=== PATIENT | female | born 1965 | race Two or more races ===

== ENCOUNTER 2020-10-03 16:19 | Inpatient (IN) | payer OTHER ==
[~2020-10-03] VITALS: Ht 160 cm; Wt 68.0 kg
[2020-10-03] MEDS ORDERED: METHYLPREDNISOLONE SOD SUCC 125 MG/2 ML VIAL IV ONE (17:15)
[2020-10-03] MEDS ORDERED: VANCOMYCIN 1 G PREMIX 200 ML IV ONE (17:15)
[2020-10-03] MEDS ORDERED: LEVOFLOXACIN 750MG PREMIX 150 ML IV ONE (17:15)
[2020-10-03 18:10] LABS: BASOPHILS % 0.4 % (0.0-2.0); HEMATOCRIT. 42.6 % (36.0-48.0); HEMOGLOBIN. 14.4 g/dL (12.0-16.0); LYMPHOCYTES % 12.9 % (20.0-50.0); MEAN CORPUSCULAR HEMOGLOBIN 28.9 pg (28.0-32.0); MEAN CORPUSCULAR VOLUME 85.6 fL (81.0-99.0); MEAN PLATELET VOLUME 11.7 fl (7.4-10.4); NEUTROPHILS % 79.7 % (40.0-76.0); PLATELET 123 x1000/uL (130-400); RED BLOOD CELL COUNT 4.98 mill/uL (4.2-5.4); RED CELL DISTRIBUTION WIDTH 13.2 % (11.6-14.6)
[2020-10-03 18:16] LABS: CHLORIDE 107 mEq/L (98-107)
[2020-10-03] MEDS ORDERED: MORPHINE SULFATE 2 MG/ML CPJ (NOT FOR IM USE) IV ONE (19:00)
[2020-10-03 20:05] LABS: CHLORIDE 106 mEq/L (98-107)
[2020-10-03] MEDS ORDERED: ACETAMINOPHEN 325MG TABLET PO ONE (20:30)
[2020-10-03] MEDS ORDERED: MAGNESIUM/ALUMINUM HYDROXIDE/SIMETHICONE 30ML UDC PO PRN (20:45)
[2020-10-03] MEDS ORDERED: ZOLPIDEM TARTRATE 5MG TABLET PO PRN (20:45)
[2020-10-03] MEDS ORDERED: DOCUSATE SODIUM 100MG CAPSULE PO PRN (20:45)
[2020-10-03] MEDS ORDERED: CLONIDINE 0.1MG TABLET PO PRN (20:45)
[2020-10-03] MEDS ORDERED: NITROGLYCERIN 0.4MG TABLET SL SL PRN (20:45)
[2020-10-03] MEDS ORDERED: ONDANSETRON HCL 4MG/2ML INJ IV PRN (20:45)
[2020-10-03] MEDS ORDERED: ALBUTEROL 6.7GM HFA INHALER ORI PRN (20:45)
[2020-10-03] MEDS: FAMOTIDINE 20MG TABLET PO SCH ×2 (21:00→21:36)
[2020-10-03] MEDS: ALBUTEROL 6.7GM HFA INHALER ORI SCH (21:00)
[2020-10-03] MEDS: ASCORBIC ACID 500 MG TABLET PO SCH ×2 (21:00→21:36)
[2020-10-03] MEDS: GUAIFENESIN/DM 600MG/30MG ER TAB 12HR PO SCH ×2 (21:00→21:36)
[2020-10-03 21:27] LABS: T4 FREE 1.09 ng/dL (0.76-1.46)
[2020-10-03] MEDS: ENOXAPARIN 40MG/0.4ML SYR SUBCUT SCH (21:37)
[2020-10-03] MEDS ORDERED: AZITHROMYCIN 500 MG in DEXT 5% WATER 250 ML IV SCH (22:00)
[2020-10-03 22:13] LABS: *AMPHETAMINES SCREEN URINE NEGATIVE (NEGATIVE); *BARBITURATES SCREEN URINE NEGATIVE (NEGATIVE); *BENZODIAZEPINES SCREEN URINE NEGATIVE (NEGATIVE); *COCAINE SCREEN URINE NEGATIVE (NEGATIVE); METHADONE URINE SCREEN NEGATIVE (NEGATIVE); OPIATES URINE SCREEN NEGATIVE (NEGATIVE); PHENCYCLIDINE URINE SCREEN NEGATIVE (NEGATIVE)
[2020-10-03 22:14] LABS: CANNABINOID URINE SCREEN NEGATIVE (NEGATIVE)
[2020-10-03 23:14] LABS: CREATINE KINASE 62 IU/L (26-192)
[2020-10-03 23:15] LABS: CREATINE KINASE MB FRACTION < 1.0 ng/mL (0.5-3.6)
[2020-10-04] MEDS: ALBUTEROL 6.7GM HFA INHALER ORI SCH ×4 (03:00→21:00)
[2020-10-04 05:49] LABS: BASOPHILS % 0.3 % (0.0-2.0); HEMATOCRIT. 42.8 % (36.0-48.0); HEMOGLOBIN. 13.9 g/dL (12.0-16.0); LYMPHOCYTES % 20.2 % (20.0-50.0); MEAN CORPUSCULAR HEMOGLOBIN 28.7 pg (28.0-32.0); MEAN CORPUSCULAR VOLUME 88.2 fL (81.0-99.0); MEAN PLATELET VOLUME 11.5 fl (7.4-10.4); MONOCYTES % 3.7 % (2.0-8.0); NEUTROPHILS % 75.8 % (40.0-76.0); PLATELET 122 x1000/uL (130-400); RED BLOOD CELL COUNT 4.85 mill/uL (4.2-5.4); RED CELL DISTRIBUTION WIDTH 13.7 % (11.6-14.6)
[2020-10-04 05:50] LABS: CHLORIDE 106 mEq/L (98-107)
[2020-10-04 06:04] LABS: CREATINE KINASE 68 IU/L (26-192)
[2020-10-04 06:11] LABS: CREATINE KINASE MB FRACTION < 1.0 ng/mL (0.5-3.6)
[2020-10-04] MEDS ORDERED: CEFTRIAXONE 1 G PREMIX 50 ML IV SCH (09:00)
[2020-10-04 10:00] VITALS: BP 145/81
[2020-10-04] MEDS: FAMOTIDINE 20MG TABLET PO SCH ×2 (10:55→22:10)
[2020-10-04] MEDS: ASPIRIN 81MG EC TABLET PO SCH (10:55)
[2020-10-04] MEDS: CEFTRIAXONE 1,000 MG in DEXTROSE 5% WATER 50 ML IV SCH (10:55)
[2020-10-04] MEDS: GUAIFENESIN/DM 600MG/30MG ER TAB 12HR PO SCH ×2 (10:56→22:10)
[2020-10-04] MEDS: ZINC SULFATE 220 MG ( 50 ) CAPSULE PO SCH (10:56)
[2020-10-04] MEDS: ASCORBIC ACID 500 MG TABLET PO SCH ×2 (10:56→22:10)
[2020-10-04] MEDS: CHOLECALCIFEROL (D3) 1000 UNIT TABLET PO SCH (10:56)
[2020-10-04] MEDS: GUAIFENESIN 200MG/10ML SUGAR FREE UDC PO PRN ×2 (10:59→18:41)
[2020-10-04] MEDS: KETOROLAC 15MG/ML VIAL IV PRN ×2 (11:01→18:41)
[2020-10-04 12:00] VITALS: BP 114/74
[2020-10-04 16:00] VITALS: BP 115/66
[2020-10-04 20:00] VITALS: BP 131/71
[2020-10-04] MEDS: ENOXAPARIN 40MG/0.4ML SYR SUBCUT SCH (22:10)
[2020-10-04] MEDS: AZITHROMYCIN 500 MG in DEXT 5% WATER 250 ML IV SCH (22:10)
[2020-10-05] VITALS: BP 109/66
[2020-10-05] MEDS: KETOROLAC 15MG/ML VIAL IV PRN ×3 (00:54→21:42)
[2020-10-05 04:00] VITALS: BP 99/62
[2020-10-05] MEDS: ALBUTEROL 6.7GM HFA INHALER ORI SCH ×4 (05:09→21:32)
[2020-10-05 08:00] VITALS: BP 108/64
[2020-10-05] MEDS: CEFTRIAXONE 1,000 MG in DEXTROSE 5% WATER 50 ML IV SCH (08:17)
[2020-10-05] MEDS: ZINC SULFATE 220 MG ( 50 ) CAPSULE PO SCH (08:17)
[2020-10-05] MEDS: FAMOTIDINE 20MG TABLET PO SCH ×3 (08:18→21:32)
[2020-10-05] MEDS: GUAIFENESIN/DM 600MG/30MG ER TAB 12HR PO SCH ×3 (08:18→21:32)
[2020-10-05] MEDS: ASPIRIN 81MG EC TABLET PO SCH (08:18)
[2020-10-05] MEDS: CHOLECALCIFEROL (D3) 1000 UNIT TABLET PO SCH (08:18)
[2020-10-05] MEDS: ASCORBIC ACID 500 MG TABLET PO SCH ×3 (08:18→21:32)
[2020-10-05 12:00] VITALS: BP 128/65
[2020-10-05] MEDS: ACETAMINOPHEN 325MG TABLET PO PRN (15:26)
[2020-10-05 16:00] VITALS: BP 105/60
[2020-10-05] MEDS: GUAIFENESIN 200MG/10ML SUGAR FREE UDC PO PRN (19:41)
[2020-10-05 20:00] VITALS: BP 104/66
[2020-10-05] MEDS: AZITHROMYCIN 500 MG in DEXT 5% WATER 250 ML IV SCH (21:32)
[2020-10-05] MEDS: ENOXAPARIN 40MG/0.4ML SYR SUBCUT SCH (21:33)
[2020-10-06] VITALS: BP 110/64
[2020-10-06 04:00] VITALS: BP 113/63
[2020-10-06] MEDS: ALBUTEROL 6.7GM HFA INHALER ORI SCH ×4 (04:34→21:57)
[2020-10-06] MEDS: GUAIFENESIN 200MG/10ML SUGAR FREE UDC PO PRN ×2 (04:40→16:33)
[2020-10-06] MEDS: KETOROLAC 15MG/ML VIAL IV PRN ×2 (04:40→22:19)
[2020-10-06 08:00] VITALS: BP 109/52
[2020-10-06] MEDS: CEFTRIAXONE 1,000 MG in DEXTROSE 5% WATER 50 ML IV SCH (10:02)
[2020-10-06] MEDS: CHOLECALCIFEROL (D3) 1000 UNIT TABLET PO SCH (10:03)
[2020-10-06] MEDS: ZINC SULFATE 220 MG ( 50 ) CAPSULE PO SCH (10:03)
[2020-10-06] MEDS: ASPIRIN 81MG EC TABLET PO SCH (10:03)
[2020-10-06] MEDS: ASCORBIC ACID 500 MG TABLET PO SCH ×2 (10:03→21:56)
[2020-10-06] MEDS: GUAIFENESIN/DM 600MG/30MG ER TAB 12HR PO SCH ×2 (10:04→21:56)
[2020-10-06] MEDS: FAMOTIDINE 20MG TABLET PO SCH ×2 (10:04→21:56)
[2020-10-06] MEDS: ACETAMINOPHEN 325MG TABLET PO PRN ×2 (10:17→16:33)
[2020-10-06 12:00] VITALS: BP 108/51
[2020-10-06 16:00] VITALS: BP 118/67
[2020-10-06 20:00] VITALS: BP 106/62
[2020-10-06] MEDS: AZITHROMYCIN 500 MG in DEXT 5% WATER 250 ML IV SCH (21:56)
[2020-10-06] MEDS: ENOXAPARIN 40MG/0.4ML SYR SUBCUT SCH (21:56)
[2020-10-07] VITALS: BP 116/64
[2020-10-07] MEDS: ALBUTEROL 6.7GM HFA INHALER ORI SCH ×4 (03:10→20:37)
[2020-10-07 04:00] VITALS: BP 129/81
[2020-10-07 08:00] VITALS: BP 130/73
[2020-10-07] MEDS: CEFTRIAXONE 1,000 MG in DEXTROSE 5% WATER 50 ML IV SCH (08:47)
[2020-10-07] MEDS: ASPIRIN 81MG EC TABLET PO SCH (09:00)
[2020-10-07] MEDS: CHOLECALCIFEROL (D3) 1000 UNIT TABLET PO SCH (09:00)
[2020-10-07] MEDS: FAMOTIDINE 20MG TABLET PO SCH ×2 (09:00→20:36)
[2020-10-07] MEDS: ASCORBIC ACID 500 MG TABLET PO SCH ×2 (09:00→20:36)
[2020-10-07] MEDS: GUAIFENESIN/DM 600MG/30MG ER TAB 12HR PO SCH ×2 (09:00→20:36)
[2020-10-07] MEDS: ZINC SULFATE 220 MG ( 50 ) CAPSULE PO SCH (09:00)
[2020-10-07 12:00] VITALS: BP 155/80
[2020-10-07 16:00] VITALS: BP 114/73
[2020-10-07 20:00] VITALS: BP 130/69
[2020-10-07] MEDS: AZITHROMYCIN 500 MG in DEXT 5% WATER 250 ML IV SCH (20:35)
[2020-10-07] MEDS: ENOXAPARIN 40MG/0.4ML SYR SUBCUT SCH (20:35)
[2020-10-07] MEDS: KETOROLAC 15MG/ML VIAL IV PRN (20:36)
[2020-10-08] VITALS: BP 132/85
[2020-10-08] MEDS: ALBUTEROL 6.7GM HFA INHALER ORI SCH ×4 (02:13→20:48)
[2020-10-08 04:00] VITALS: BP 126/61
[2020-10-08 08:00] VITALS: BP_SYST 140; BP_SYST 46; BP_DIAS 78; BP_DIAS 84
[2020-10-08] MEDS: GUAIFENESIN/DM 600MG/30MG ER TAB 12HR PO SCH ×2 (09:00→20:47)
[2020-10-08] MEDS: CHOLECALCIFEROL (D3) 1000 UNIT TABLET PO SCH (09:00)
[2020-10-08] MEDS: ZINC SULFATE 220 MG ( 50 ) CAPSULE PO SCH (09:00)
[2020-10-08] MEDS: ASPIRIN 81MG EC TABLET PO SCH (09:00)
[2020-10-08] MEDS: ASCORBIC ACID 500 MG TABLET PO SCH ×2 (09:00→20:47)
[2020-10-08] MEDS: FAMOTIDINE 20MG TABLET PO SCH ×2 (09:00→20:47)
[2020-10-08] MEDS: CEFTRIAXONE 1,000 MG in DEXTROSE 5% WATER 50 ML IV SCH (09:55)
[2020-10-08 12:00] VITALS: BP 146/84
[2020-10-08] MEDS: AZITHROMYCIN 500 MG in DEXT 5% WATER 250 ML IV SCH (14:28)
[2020-10-08 16:00] VITALS: BP 116/87
[2020-10-08] MEDS: ACETAMINOPHEN 325MG TABLET PO PRN (17:23)
[2020-10-08] MEDS: GUAIFENESIN 200MG/10ML SUGAR FREE UDC PO PRN (17:23)
[2020-10-08 20:00] VITALS: BP 128/68
[2020-10-08] MEDS: ENOXAPARIN 40MG/0.4ML SYR SUBCUT SCH (20:47)
[2020-10-09] VITALS: BP 120/60
[2020-10-09] MEDS: ALBUTEROL 6.7GM HFA INHALER ORI SCH ×4 (03:12→20:29)
[2020-10-09 04:00] VITALS: BP 137/70
[2020-10-09] MEDS: ASCORBIC ACID 500 MG TABLET PO SCH ×2 (09:18→20:27)
[2020-10-09] MEDS: GUAIFENESIN/DM 600MG/30MG ER TAB 12HR PO SCH ×2 (09:18→20:27)
[2020-10-09] MEDS: CEFTRIAXONE 1,000 MG in DEXTROSE 5% WATER 50 ML IV SCH (09:18)
[2020-10-09] MEDS: FAMOTIDINE 20MG TABLET PO SCH ×2 (09:19→20:27)
[2020-10-09] MEDS: ZINC SULFATE 220 MG ( 50 ) CAPSULE PO SCH (09:19)
[2020-10-09] MEDS: ASPIRIN 81MG EC TABLET PO SCH (09:19)
[2020-10-09] MEDS: CHOLECALCIFEROL (D3) 1000 UNIT TABLET PO SCH (11:05)
[2020-10-09 12:00] VITALS: BP 123/83
[2020-10-09] MEDS: AZITHROMYCIN 500 MG in DEXT 5% WATER 250 ML IV SCH (13:04)
[2020-10-09 16:00] VITALS: BP 130/79
[2020-10-09 20:00] VITALS: BP 132/73
[2020-10-09] MEDS: ENOXAPARIN 40MG/0.4ML SYR SUBCUT SCH (20:27)
[2020-10-09] MEDS: ACETAMINOPHEN 325MG TABLET PO PRN (23:53)
[2020-10-10] VITALS: BP 137/79
[2020-10-10] MEDS: ALBUTEROL 6.7GM HFA INHALER ORI SCH ×4 (03:00→21:54)
[2020-10-10 04:00] VITALS: BP 111/73
[2020-10-10 08:00] VITALS: BP 118/75
[2020-10-10] MEDS: ASPIRIN 81MG EC TABLET PO SCH (08:33)
[2020-10-10] MEDS: GUAIFENESIN/DM 600MG/30MG ER TAB 12HR PO SCH ×2 (08:33→21:53)
[2020-10-10] MEDS: ASCORBIC ACID 500 MG TABLET PO SCH ×2 (08:33→21:53)
[2020-10-10] MEDS: FAMOTIDINE 20MG TABLET PO SCH ×2 (08:33→21:53)
[2020-10-10] MEDS: ZINC SULFATE 220 MG ( 50 ) CAPSULE PO SCH (08:33)
[2020-10-10] MEDS: CHOLECALCIFEROL (D3) 1000 UNIT TABLET PO SCH (08:34)
[2020-10-10 12:00] VITALS: BP 113/73
[2020-10-10] MEDS: AZITHROMYCIN 500 MG in DEXT 5% WATER 250 ML IV SCH (12:43)
[2020-10-10 16:00] VITALS: BP 121/73
[2020-10-10 20:00] VITALS: BP 138/88
[2020-10-10] MEDS: ENOXAPARIN 40MG/0.4ML SYR SUBCUT SCH (21:53)
[2020-10-11] VITALS: BP 118/76
[2020-10-11] MEDS: ACETAMINOPHEN 325MG TABLET PO PRN (00:26)
[2020-10-11] MEDS: ALBUTEROL 6.7GM HFA INHALER ORI SCH ×4 (03:00→21:30)
[2020-10-11 04:00] VITALS: BP 117/62
[2020-10-11 08:00] VITALS: BP 123/71
[2020-10-11] MEDS: ASCORBIC ACID 500 MG TABLET PO SCH ×2 (08:50→21:29)
[2020-10-11] MEDS: ASPIRIN 81MG EC TABLET PO SCH (08:50)
[2020-10-11] MEDS: CHOLECALCIFEROL (D3) 1000 UNIT TABLET PO SCH (08:50)
[2020-10-11] MEDS: ZINC SULFATE 220 MG ( 50 ) CAPSULE PO SCH (08:50)
[2020-10-11] MEDS: FAMOTIDINE 20MG TABLET PO SCH ×2 (08:50→21:29)
[2020-10-11] MEDS: GUAIFENESIN/DM 600MG/30MG ER TAB 12HR PO SCH ×2 (08:50→21:29)
[2020-10-11 12:00] VITALS: BP 111/73
[2020-10-11] MEDS: AZITHROMYCIN 500 MG in DEXT 5% WATER 250 ML IV SCH (14:32)
[2020-10-11 16:00] VITALS: BP 120/74
[2020-10-11 20:00] VITALS: BP 117/68
[2020-10-11] MEDS: ENOXAPARIN 40MG/0.4ML SYR SUBCUT SCH (21:29)
[2020-10-12] VITALS: BP 106/61
[2020-10-12 04:00] VITALS: BP 108/59
[2020-10-12] MEDS: ALBUTEROL 6.7GM HFA INHALER ORI SCH ×3 (04:00→15:00)
[2020-10-12 08:00] VITALS: BP 113/63
[2020-10-12] MEDS: ZINC SULFATE 220 MG ( 50 ) CAPSULE PO SCH (08:23)
[2020-10-12] MEDS: ASCORBIC ACID 500 MG TABLET PO SCH (08:23)
[2020-10-12] MEDS: FAMOTIDINE 20MG TABLET PO SCH (08:23)
[2020-10-12] MEDS: ASPIRIN 81MG EC TABLET PO SCH (08:23)
[2020-10-12] MEDS: CHOLECALCIFEROL (D3) 1000 UNIT TABLET PO SCH (08:23)
[2020-10-12] MEDS: GUAIFENESIN/DM 600MG/30MG ER TAB 12HR PO SCH (08:23)
[2020-10-12 12:00] VITALS: BP 118/74
[2020-10-12] MEDS: AZITHROMYCIN 500 MG in DEXT 5% WATER 250 ML IV SCH (13:42)
[2020-10-12 15:26] VITALS: BP 103/63
[2020-10-12] MEDS: GUAIFENESIN 200MG/10ML SUGAR FREE UDC PO PRN (16:05)
== END 2020-10-12 16:08 | disposition short-term general hospital (02) | DRG 871 ==
LOC: ER 16:19 → MICUSO 18:47 → 7WST 10-04 07:21
PROVIDERS: ADMIT Internal Medicine; ATTEND Internal Medicine
DX: A41.9 Sepsis, unspecified organism (principal); U07.1 COVID-19; J12.82 Pneumonia due to coronavirus disease 2019; J96.01 Acute respiratory failure with hypoxia; E44.1 Mild protein-calorie malnutrition; I10 Essential (primary) hypertension; E78.00 Pure hypercholesterolemia, unspecified; E87.5 Hyperkalemia; Z78.9 Other specified health status; Z68.26 Body mass index [BMI] 26.0-26.9, adult
CPT/HCPCS: 36415; 71045; 80048; 80053; 80061; 80305; 82550; 82553; 83036; 83735; 83880; 84439; 84443; 84484; 85025; 87426; 93005; 93970; 99285; C1893; J0456; J0696; J1650; J1885; J1956; J2405; J2930; J3370; J7040; J7060; U0003; U0005

== ENCOUNTER 2023-02-02 12:12 | Inpatient (IN) | payer OTHER ==
[~2023-02-02] VITALS: Ht 152.4 cm; Wt 90.3 kg
[2023-02-02] MEDS ORDERED: ACETAMINOPHEN 325MG TABLET PO ONE (13:15)
[2023-02-02] MEDS ORDERED: METOCLOPRAMIDE HCL 10MG/2ML VIAL IV ONE (13:15)
[2023-02-02] MEDS ORDERED: SODIUM CHLORIDE 0.9% 1,000 ML IV ONE (13:15)
[2023-02-02 13:51] LABS: PROTHROMBIN TIME 10.3 sec (9.6-11.0)
[2023-02-02 15:42] LABS: BASOPHILS % 0.7 % (0.0-2.0); DIFFERENTIAL COMMENT 0; EOSINOPHILS % 1.7 % (0.0-5.0); HEMATOCRIT. 39.9 % (36.0-48.0); HEMOGLOBIN. 13.1 g/dL (12.0-16.0); LYMPHOCYTES % 41.6 % (20.0-50.0); MEAN CORPUSCULAR HEMOGLOBIN 28.4 pg (28.0-32.0); MEAN CORPUSCULAR HGB CONC 32.8 g/dL (31.0-37.0); MEAN CORPUSCULAR VOLUME 86.7 fL (81.0-99.0); MEAN PLATELET VOLUME 11.8 fl (7.4-10.4); MONOCYTES % 6.3 % (2.0-8.0); NEUTROPHILS % 49.7 % (40.0-76.0); PLATELET 197 x1000/uL (130-400); RED CELL DISTRIBUTION WIDTH 13.8 % (11.6-14.6); WHITE BLOOD COUNT 5.6 x1000/uL (4.5-11.0)
[2023-02-02 16:23] LABS: CLARITY URINE CLEAR (CLEAR); COLOR URINE YELLOW (YELLOW); GLUCOSE URINE NEGATIVE (NEGATIVE); KETONES URINE NEGATIVE (NEGATIVE); LEUKOCYTE ESTERASE URINE NEGATIVE (NEGATIVE); NITRITE URINE NEGATIVE (NEGATIVE); OCCULT BLOOD URINE NEGATIVE (NEGATIVE); PH URINE 6.5 (4.5-8.0); PROTEIN URINE NEGATIVE (NEGATIVE); UROBILINOGEN URINE 0.2 E.U./dL (0.2-1.0)
[2023-02-02 16:57] LABS: *AMPHETAMINES SCREEN URINE NEGATIVE (NEGATIVE); *BARBITURATES SCREEN URINE NEGATIVE (NEGATIVE); *BENZODIAZEPINES SCREEN URINE NEGATIVE (NEGATIVE); *COCAINE SCREEN URINE NEGATIVE (NEGATIVE); CANNABINOID URINE SCREEN NEGATIVE (NEGATIVE); ECSTASY MDMA SCREEN URINE NEGATIVE (NEGATIVE); METHADONE URINE SCREEN Neg (NEGATIVE); OPIATES URINE SCREEN NEGATIVE (NEGATIVE); PHENCYCLIDINE URINE SCREEN NEGATIVE (NEGATIVE)
[2023-02-02 17:26] LABS: TROPONIN I HIGH SENSITIVITY < 4 ng/L (3.0-34)
[2023-02-02 17:50] LABS: ALANINE AMINOTRANSFERASE 12 IU/L (10-49); ASPARTATE AMINOTRANSFERASE 18 IU/L (<34); BILIRUBIN TOTAL 0.5 mg/dL (0.1-1.0); CALCIUM 9.4 mg/dL (8.7-10.4); CARBON DIOXIDE 25 mEq/L (21-32); CHLORIDE 107 mEq/L (98-107); CREATININE 0.7 mg/dL (0.6-1.0); GLUCOSE 69 mg/dL (70-105); POTASSIUM 4.1 mEq/L (3.5-5.1); PROTEIN TOTAL 7.1 g/dL (6.0-8.3); SODIUM 144 mEq/L (136-145); UREA NITROGEN BLOOD 9 mg/dL (9-23)
[2023-02-02 17:52] LABS: ETHANOL BLOOD < 10 mg/dL (<10)
[2023-02-03 04:00] VITALS: BP 132/56; PULSE 60; RESP 19; TEMP 97.5
[2023-02-03 08:00] VITALS: BP 134/68; PULSE 57; RESP 18; TEMP 97.9
[2023-02-03] MEDS ORDERED: HYDROCODONE/ACETAMINOPHEN 7.5/325MG TABLET PO PRN (08:30)
[2023-02-03] MEDS: ASPIRIN 81MG TABLET PO SCH (08:37)
[2023-02-03] MEDS ORDERED: NALOXONE HCL 0.4MG/ML VIAL IV PRN (08:45)
[2023-02-03 12:00] VITALS: BP 119/59; PULSE 54; RESP 18; TEMP 96
[2023-02-03] MEDS ORDERED: IOHEXOL-350 100 ML BOTTLE ONE (12:18)
[2023-02-03 12:55] LABS: CALCIUM 9.8 mg/dL (8.7-10.4); CARBON DIOXIDE 32 mEq/L (21-32); CHLORIDE 100 mEq/L (98-107); CHOLESTEROL 118 mg/dL (<200); CREATININE 0.6 mg/dL (0.6-1.0); GLUCOSE 103 mg/dL (70-105); HDL CHOLESTEROL 27 mg/dL (>65); LDL CHOLESTEROL 82 mg/dL (5-100); SODIUM 137 mEq/L (136-145); THYROID STIMULATING HORMONE 1.12 uIU/mL (0.55-4.78); TRIGLYCERIDE 79 mg/dL (0-150); UREA NITROGEN BLOOD 10 mg/dL (9-23)
[2023-02-03] MEDS: AMLODIPINE 5MG TABLET PO SCH (15:00)
[2023-02-03] MEDS ORDERED: KETOROLAC 15MG/ML VIAL IV PRN (15:00)
[2023-02-03] MEDS ORDERED: DIPHENHYDRAMINE 50MG/ML VIAL IV PRN (15:00)
[2023-02-03 16:00] VITALS: BP 99/61; PULSE 55; RESP 18; TEMP 97.1
[2023-02-03 20:00] VITALS: BP 121/70; PULSE 60; RESP 20; TEMP 97.6
[2023-02-03] MEDS ORDERED: ATORVASTATIN CALCIUM 40MG TABLET PO SCH (21:00)
[2023-02-04] VITALS: BP 97/61; PULSE 52; RESP 19; TEMP 97.2
[2023-02-04 04:00] VITALS: BP 125/54; PULSE 52; RESP 20; TEMP 97
[2023-02-04 08:00] VITALS: BP 117/63; PULSE 67; RESP 18; TEMP 99
[2023-02-04] MEDS: AMLODIPINE 5MG TABLET PO SCH (08:13)
[2023-02-04] MEDS: ASPIRIN 81MG TABLET PO SCH (08:13)
[2023-02-04] MEDS ORDERED: GADOTERATE MEGLUMINE 5 MMOL/10 ML VIAL IV ONE (11:23)
[2023-02-04 12:00] VITALS: BP 129/62; PULSE 60; RESP 18; TEMP 98.1
[2023-02-04 13:43] VITALS: BP 129/62; PULSE 60; TEMP 98.1; O2SAT 96
== END 2023-02-04 14:20 | disposition home or self-care (01) | DRG 305 ==
LOC: ER 12:16 → EDBEDREQTM 22:03 → EDBEDREQSVC 22:03 → EDBEDREQ 22:03 → MICUSO 02-03 00:52 → 7WST 02-03 04:01
PROVIDERS: ADMIT Internal Medicine; ATTEND Internal Medicine
DX: I16.0 Hypertensive urgency (principal); I10 Essential (primary) hypertension; E78.00 Pure hypercholesterolemia, unspecified; H53.8 Other visual disturbances; Z85.038 Personal history of other malignant neoplasm of large intestine
CPT/HCPCS: 36415; 70496; 70551; 70552; 71045; 72156; 80048; 80053; 80061; 80305; 80320; 81003; 83735; 84443; 84484; 85025; 86850; 86900; 93005; 93970; 99291; A9577; J1200; J1885; J2765; J7030; Q9967; G0480

== ENCOUNTER 2024-09-17 09:27 | Emergency (ER) | payer OTHER ==
[~2024-09-17] VITALS: Ht 165.1 cm; Wt 62.0 kg
[2024-09-17 09:29] VITALS: O2SAT 99
[2024-09-17] MEDS: MORPHINE SULFATE 4 MG/ML INJ (FOR IV/IM USE) IV ONE ×2 (10:38→11:45)
[2024-09-17 10:55] LABS: BASOPHILS % 0.1 % (0.0-2.0); EOSINOPHILS % 0.0 % (0.0-5.0); HEMATOCRIT. 41.5 % (36.0-48.0); HEMOGLOBIN. 13.7 g/dL (12.0-16.0); LYMPHOCYTES % 7.2 % (20.0-50.0); MEAN PLATELET VOLUME 11.4 fl (7.4-10.4); MONOCYTES % 6.7 % (2.0-8.0); NEUTROPHILS % 86.0 % (40.0-76.0); PLATELET 216 x1000/uL (130-400); RED BLOOD CELL COUNT 4.82 mill/uL (4.2-5.4); RED CELL DISTRIBUTION WIDTH 14.0 % (11.6-14.6)
[2024-09-17 11:04] LABS: CREATININE 1.0 mg/dL (0.6-1.0); UREA NITROGEN BLOOD 12 mg/dL (9-23)
[2024-09-17 11:05] LABS: TROPONIN I HIGH SENSITIVITY 11 ng/L (3.0-34)
[2024-09-17] MEDS: ONDANSETRON HCL 4MG/2ML INJ IV ONE (11:45)
[2024-09-17] MEDS: SODIUM CHLORIDE 0.9% 1,000 ML IV ONE (11:45)
[2024-09-17] MEDS ORDERED: DEXT 5%/0.45% NACL 1000ML 1,000 ML IV SCH (12:45)
[2024-09-17] MEDS ORDERED: HYDROCODONE/ACETAMINOPHEN 5/325MG TABLET PO PRN (12:45)
[2024-09-17] MEDS ORDERED: ACETAMINOPHEN 325MG TABLET PO PRN (12:45)
[2024-09-17] MEDS ORDERED: MAGNESIUM/ALUMINUM HYDROXIDE/SIMETHICONE 30ML UDC PO PRN (12:45)
[2024-09-17] MEDS ORDERED: ONDANSETRON HCL 4MG/2ML INJ IV PRN (12:45)
[2024-09-17] MEDS ORDERED: ZOLPIDEM TARTRATE 5MG TABLET PO PRN (12:45)
[2024-09-17] MEDS ORDERED: CLONIDINE 0.1MG TABLET PO PRN (12:45)
[2024-09-17] MEDS ORDERED: MORPHINE SULFATE 2 MG/ML INJ (NOT FOR IM USE) IV PRN (12:45)
[2024-09-17] MEDS ORDERED: NALOXONE HCL 0.4MG/ML VIAL IV PRN (12:45)
[2024-09-17 13:24] LABS: TROPONIN I HIGH SENSITIVITY 9 ng/L (3.0-34)
[2024-09-17 14:02] VITALS: BP 178/84; PULSE 74; RESP 20; TEMP 36.7; O2SAT 97
[2024-09-17] MEDS ORDERED: ENOXAPARIN 40MG/0.4ML SYR SUBCUT SCH (15:00)
[2024-09-17] MEDS ORDERED: ATORVASTATIN CALCIUM 40MG TABLET PO SCH (21:00)
[2024-09-17] MEDS ORDERED: AMLODIPINE 5MG TABLET PO SCH (21:00)
[2024-09-18] MEDS ORDERED: PANTOPRAZOLE SODIUM 40 MG/VIAL IV SCH (09:00)
[2024-09-18] MEDS ORDERED: ASPIRIN 81MG EC TABLET PO SCH (09:00)
[2024-09-18] MEDS ORDERED: CLOPIDOGREL 75MG TABLET PO SCH (09:00)
== END 2024-09-17 14:21 | disposition short-term general hospital (02) ==
LOC: ER 09:27 → CMPBEDREQ 19:32
DX: R07.2 Precordial pain (principal); E78.00 Pure hypercholesterolemia, unspecified; I10 Essential (primary) hypertension; Z79.899 Other long term (current) drug therapy
CPT/HCPCS: 99285; 93970; 96374; 71045; 96361; 96375; 80048; 85025; 84484; 36415; 93005; 96376; J2405; J2270; J7030